=== PATIENT | male | born 1955 | race Asian ===

== ENCOUNTER 2017-05-05 21:53 | Emergency (ER) | payer BC ==
[~2017-05-05] VITALS: Ht 172.7 cm; Wt 72.6 kg
--- NOTE | 2017-05-05 21:58 | Emergency Room Report ---
History of Present Illness General Source: EMS Present Illness HPI This is a 61 year-old Italian male brought in by police for alcohol intoxication. He was sitting down on the sidewalk vomiting. Been drinking heavily tonight. Neighbor called 911. Unable to get any history from the patient. He did admit to drinking. No trauma. Allergies: Coded Allergies: UNABLE TO ASSESS (Unverified , 05/05/17) Patient History Past Medical History: see triage record, old chart reviewed, unable to obtain Past Surgical History: unable to obtain Pertinent Family History: unable to obtain Social History: Reports: alcohol use Immunizations: other Reviewed Nursing Documentation: PMH: Agreed, PSxH: Agreed Review of Systems All Other Systems: limited - Secondary to intoxication Physical Exam vitals unremarkable Sp02 EP Interpretation: reviewed, normal General Appearance: well appearing, no apparent distress, other - Very intoxicated Head: normocephalic, atraumatic Eyes: bilateral eye EOMI, bilateral eye PERRL ENT: hearing grossly normal, normal pharynx Neck: full range of motion, supple, no meningismus Respiratory: chest non-tender, lungs clear, normal breath sounds Cardiovascular #1: regular rate, rhythm, no murmur Gastrointestinal: normal bowel sounds, non tender, no mass, no organomegaly, no bruit, non-distended Musculoskeletal: back normal, normal range of motion Neurologic: grossly normal Skin: warm/dry Medical Decision Making Diagnostic Impression: Primary Impression: Alcohol intoxication Qualified Codes: F10.920 - Alcohol use, unspecified with intoxication, uncomplicated ER Course Patient presents with alcohol intoxication. Is no trauma. We'll observe until clinical sobriety. I will hold off any CT scan for now since I see no trauma. patient slept through the night. He is awake now. No trauma. We'll discharge home in a couple hours. Status: improved Disposition: HOME, SELF-CARE Condition: Stable Additional Instructions: abstain from drinking to excess. Followup with your Dr. in 7 days. Return if worse. JAMILA PARDO M.D. May 05, 2017 21:58
[2017-05-06 01:13] VITALS: BP 131/81
[2017-05-06 04:04] VITALS: BP 109/80
[2017-05-06 05:48] VITALS: BP 110/73
[2017-05-06 10:23] VITALS: BP 113/76
[2017-05-06 10:24] VITALS: BP 113/76
== END 2017-05-06 10:25 | disposition home or self-care (01) ==
LOC: EDBD 21:53 → EMR 22:23
DX: F10.920 Alcohol use, unspecified with intoxication, uncomplicated (principal)
CPT/HCPCS: 96372; 99284; J2405